=== PATIENT | male | born 1940 | race Caucasian/White ===

== ENCOUNTER 2020-06-09 11:50 | Day surgery (SDC) | payer MEDICARE, BC ==
[2020-06-09] VITALS (10 sets, daily range): BP systolic 135–182; BP diastolic 51–95; PULSE 51–66; TEMP 97.8–98.2
[~2020-06-09] VITALS: Ht 177.8 cm; Wt 122.0 kg
[2020-06-09] MEDS ORDERED: ASPIRIN 81M81 MG/TA2 PO (12:05)
[2020-06-09] MEDS ORDERED: NORVASC 5MG5 MG/TAB PO (12:05)
[2020-06-09] MEDS ORDERED: TRICOR145 MG PO (12:06)
[2020-06-09] MEDS ORDERED: BUSPAR DIVIDOSE15 MG PO (12:06)
[2020-06-09] MEDS ORDERED: PLAVIX 75MG TAB75 MG PO (12:06)
[2020-06-09] MEDS ORDERED: ONE-A-DAY ESSE1 EACH PO (12:07)
[2020-06-09] MEDS ORDERED: CRESTOR5 MG PO (12:08)
[2020-06-09] MEDS ORDERED: ALBUTEROL S0.4 MG/ML PO (12:14)
[2020-06-09 13:39] LABS: BASO % 0.4 % (0.0-2.0); EOS # 0.3 (0.0-0.7); GRAN # 5.6 (1.4-6.5); GRAN % 71.6 % (42.2-75.2); LYMPH # 1.1 (1.2-3.4); LYMPH % 13.6 % (20.0-51.0); MEAN CELL VOLUME 91 fl (80.0-100.0); MEAN CORPUSCULAR HGB CONC 33 g/dl (33.0-37.0); MEAN PLATELET VOLUME 9.5 fl (7.4-10.4); MONO # 0.8 (0.1-0.6); MONO % 9.9 % (1.7-9.3); PLATELET COUNT 233 K/mm3 (130-400); RED BLOOD COUNT 3.15 M/mm3 (4.20-5.60); REDCELL DISTRIBUTION WIDTH-CV 14.4 % (11.5-14.5)
[2020-06-09 13:42] LABS: HEMATOCRIT 28.8 % (42.0-52.0); HEMOGLOBIN 9.4 g/dl (13.5-18.0); MEAN CORPUSCULAR HEMOGLOBIN 30 pg (27.0-31.0)
--- NOTE | 2020-06-09 14:27 | NUR ---
Patient all admited to room 324. Inital,5 page & med rec completed. Anesthesia rounded & Dr. Olivares saw patient. Consent obtained. IV started & fluids per orders. Patient has been NPO. He denies difficulty with urination. No bañuelos started at this time. His at bedside. Will monitor.
--- NOTE | 2020-06-09 15:45 | NUR ---
Patient to the OR with Carrie. Pepcid given pre op. Will await his return
--- NOTE | 2020-06-09 18:37 | NUR ---
Patient has done well post op. Vss. Cbi to slow rate. clear yellow output. dinner ordered. Patient at bedside. Scds ble.
--- NOTE | 2020-06-09 20:10 | NUR ---
Pt. sitting up in bed at this time. Pt. is A&OX3, assessment complete. INT to lt. hand patent. 3-way bañuelos catheter with CBI to DD, urine is light pink with no clots noted. Pt. denies pain or other needs, call light within reach.
[2020-06-10 00:20] VITALS: BP 155/61; PULSE 61; TEMP 98.5
[2020-06-10 04:44] VITALS: BP 149/60; PULSE 57; TEMP 98.5
--- NOTE | 2020-06-10 07:30 | NUR ---
Patient in bed resting. Alert and oriented x 3. Assessment complete. Denies pain at this time. CBI clamped at this time. [place] with clear yellow urine. Denies further needs at this time.
[2020-06-10 08:34] VITALS: BP 109/70; PULSE 68; TEMP 97.6
--- NOTE | 2020-06-10 09:00 | NUR ---
Patient primed and pulled. primed with 250ml of fluid. Patient tolerated procedure well. Patient and spouse educated on 6 cup routine.
--- NOTE | 2020-06-10 12:00 | NUR ---
Patient voiding without difficulties, would like to discharge.
--- NOTE | 2020-06-10 12:15 | NUR ---
Discharge education provided to patient. Educated on when to call provider and scheduling follow up appointment. Patient continues voiding clear peach urine. Patient educated on new medication. All questions answered, INT discontinued, catheter tip intact. Denies further needs.
--- NOTE | 2020-06-10 12:27 | NUR ---
Patient out by wheelchair with family and surgical staff
== END 2020-06-10 12:27 | disposition home or self-care (01) ==
LOC: SURG 11:50 → SDCO 11:50 → SURG 11:52 → SDCO 06-10 12:27
PROVIDERS: Urology
DX: N40.0 Benign prostatic hyperplasia without lower urinary tract symptoms (principal); R31.0 Gross hematuria; Z79.82 Long term (current) use of aspirin; Z79.02 Long term (current) use of antithrombotics/antiplatelets; I10 Essential (primary) hypertension; Z87.891 Personal history of nicotine dependence; M19.90 Unspecified osteoarthritis, unspecified site; F41.9 Anxiety disorder, unspecified; Z85.72 Personal history of non-Hodgkin lymphomas
CPT/HCPCS: OP; J0690; J2405; J2704; J3010; J7030